=== PATIENT | male | born 1965 | race Native Hawaiian/Other Pacific Islander ===

== ENCOUNTER 2018-12-19 08:44 | Emergency (ER) | payer OTHER ==
[2018-12-19 08:53] VITALS: BP 140/85
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
[2018-12-19] MEDS ORDERED: IBUPROFEN PO ONE (09:35)
[2018-12-19] MEDS ORDERED: THERMAZENE 50 GRAM TP ONE (10:00)
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
== END 2018-12-19 11:24 | disposition home or self-care (01) ==
LOC: ED 08:44
DX: M25.531 Pain in right wrist (principal); M25.532 Pain in left wrist; R07.89 Other chest pain; Z79.899 Other long term (current) drug therapy; V49.40XA Driver injured in collision with unspecified motor vehicles in traffic accident, initial encounter; Y93.89 Activity, other specified; Y92.410 Unspecified street and highway as the place of occurrence of the external cause; Y99.8 Other external cause status
CPT/HCPCS: 71046; 72040; 93005; 93010

== ENCOUNTER 2021-11-04 23:50 | Emergency (ER) | payer SELFPAY ==
--- NOTE | 2021-11-05 04:39 | Emergency Department Report ---
ED ENT HPI - General Chief complaint: Skin/Abscess/Foreign Body Stated complaint: RT EAR PAIN/FOREIGN BODY Time Seen by Provider: 11/05/21 04:21 Source: patient Mode of arrival: Ambulatory Limitations: No Limitations - History of Present Illness Initial comments: Cardiomyopathy emerged from complaining of pain to the right ear after a reported insect crawled into his ear he tried to kill it but is questioning. Pain is dull and throbbing he no longer feels movement. No fever, chills, sweats but no presyncope. No nausea vomit MD complaint: ear pain -: Sudden Location: R ear Severity: mild, moderate Quality: aching, dull Consistency: constant Improves with: none Worsens with: none Context- Dental: history of dental caries Context- Ear: recent illness Associated Symptoms: denies: gum swelling, toothache - Related Data Previous Rx's Medication Instructions Recorded Last Taken Type Cyclobenzaprine [Flexeril] 10 mg PO TID PRN #10 tablet 12/19/18 Unknown Rx predniSONE [Deltasone] 20 mg PO DAILY #5 tablet 12/19/18 Unknown Rx Neomy/Polymyx B/Hc Otic Susp 4 drops AD TID #1 bottle 11/05/21 Unknown Rx [Cortisporin (Otic) Susp] Allergies Allergy/AdvReac Type Severity Reaction Status Date / Time No Known Allergies Allergy Verified 12/19/18 09:36 ED Dental HPI - General Chief complaint: Skin/Abscess/Foreign Body Stated complaint: RT EAR PAIN/FOREIGN BODY Time Seen by Provider: 11/05/21 04:21 Source: patient Mode of arrival: Ambulatory Limitations: No Limitations - Related Data Previous Rx's Medication Instructions Recorded Last Taken Type Cyclobenzaprine [Flexeril] 10 mg PO TID PRN #10 tablet 12/19/18 Unknown Rx predniSONE [Deltasone] 20 mg PO DAILY #5 tablet 12/19/18 Unknown Rx Neomy/Polymyx B/Hc Otic Susp 4 drops AD TID #1 bottle 11/05/21 Unknown Rx [Cortisporin (Otic) Susp] Allergies Allergy/AdvReac Type Severity Reaction Status Date / Time No Known Allergies Allergy Verified 12/19/18 09:36 ED Review of Systems ROS: Stated complaint: RT EAR PAIN/FOREIGN BODY Other details as noted in HPI Comment: All other systems reviewed and negative ED Past Medical Hx - Social History Smoking Status: Never Smoker Substance Use Type: None - Medications Home Medications: Home Medications Medication Instructions Recorded Confirmed Last Taken Type Cyclobenzaprine [Flexeril] 10 mg PO TID PRN #10 tablet 12/19/18 Unknown Rx predniSONE [Deltasone] 20 mg PO DAILY #5 tablet 12/19/18 Unknown Rx Neomy/Polymyx B/Hc Otic Susp 4 drops AD TID #1 bottle 11/05/21 Unknown Rx [Cortisporin (Otic) Susp] ED Physical Exam - General Limitations: No Limitations ED Course Vital Signs 11/05/21 00:11 Temperature 98.8 F Pulse Rate 70 Respiratory 18 Rate Blood Pressure 147/86 O2 Sat by Pulse 97 Oximetry - Foreign Body Removal Ear Foreign Body Suspected: insect If Insect Suspected: ear canal inspected-intac Foreign Body Removed: yes Foreign Body Removal Technique: instrumentation Tympanic Membrane Intact: Yes Patient Tolerated Procedure: well Complications: none Critical care attestation.: If time is entered above; I have spent that time in minutes in the direct care of this critically ill patient, excluding procedure time. ED Disposition Clinical Impression: Ear foreign body Disposition: 01 HOME / SELF CARE / HOMELESS Is pt being admited?: No Does the pt Need Aspirin: No Condition: Stable Instructions: Ear Foreign Body Prescriptions: Neomy/Polymyx B/Hc Otic Susp [Cortisporin (Otic) Susp] 4 drops AD TID #1 bottle Referrals: [facility] [Provider Group] - 3-5 Days
[2021-11-05] MEDS ORDERED: HYDROcodone/ACETAMINOPHEN 5-325 MG TAB PO STA (04:58)
[2021-11-05 05:19] VITALS: BP 136/77
== END 2021-11-05 06:18 | disposition home or self-care (01) ==
LOC: ED 23:50
DX: T16.1XXA Foreign body in right ear, initial encounter (principal); X58.XXXA Exposure to other specified factors, initial encounter; Y93.89 Activity, other specified; Y92.89 Other specified places as the place of occurrence of the external cause; Y99.8 Other external cause status
CPT/HCPCS: 99282